=== PATIENT | female | born 1965 | race Hispanic/Latino ===

== ENCOUNTER 2016-05-28 11:24 | Outpatient (CLI) | payer BC ==
--- NOTE | 2016-05-29 10:56 | Mammography Report ---
BILATERAL DIGITAL SCREENING MAMMOGRAM with CAD: 05/28/16 11:24:00 CLINICAL: Routine screening. COMPARISON:03/18/15 FINDINGS: The breasts are heterogeneously dense, which may obscure small masses. Bilateral asymmetries require additional imaging.No architectural distortion or suspicious calcifications. IMPRESSION: Bilateral asymmetries requiring further workup. BI-RADS CATEGORY: 0 -- Additional Imaging Evaluation Required RECOMMENDATION: Recall for bilateral spot compression views and bilateral breast ultrasound if needed. ACR BI-RADS MAMMOGRAPHIC CODES: 0 = Needs additional imaging evaluation; 1 = Negative; 2 = Benign; 3 = Probably benign; 4 = Suspicious; 5 = Malignant; 6 = Known biopsy-proven malignancy COMMENT: 1. Dense breast tissue, i.e., adenosis, fibrocystic changes, etc., may obscure an underlying neoplasm. 2. Approximately 10% of cancers are not detected with mammography. 3. A negative mammography report should not delay biopsy if a clinically suspicious mass is present. COMMENT: Patient follow-up letters are generated via our [employer] application.
== END 2016-05-28 11:25 | disposition home or self-care (01) ==
LOC: SPVWC 11:24
PROVIDERS: ATTEND Obstetrics & Gynecology
DX: Z12.31 Encounter for screening mammogram for malignant neoplasm of breast (principal)
CPT/HCPCS: 77067; G0202

== ENCOUNTER 2016-06-25 12:55 | Outpatient (CLI) | payer BC ==
--- NOTE | 2016-06-26 11:06 | Ultrasound Report ---
BILATERAL DIGITAL DIAGNOSTIC MAMMOGRAM and BILATERAL BREAST ULTRASOUND: 06/25/16 12:55:00 CLINICAL: Recalled for bilateral asymmetries. COMPARISON:05/28/16 screening FINDINGS: Lateralmedial and spot compression MLO and CC views were performed. Partial effacement of bilateral asymmetries. Ultrasound of the right breast (including all four quadrants and the retroareolar area) was performed and demonstrated multiple benign cysts and no solid mass or shadowing. Cyst at 12 o'clock 3 cm from the nipple measures 6 x 3 x 7 mm. Cyst at 2 o'clock 3 cm from the nipple measures 8 x 6 x 9 mm. Cyst at 3 o'clock 4 cm from the nipple measures 9 x 6 x 8 mm and a cyst at 10 o'clock 4 cm from the nipple measures 8 x 4 x 7 mm. Ultrasound of the left breast (including all four quadrants and the retroareolar area) was performed and demonstrated multiple benign cysts and no solid mass or shadowing. A subareolar cyst at 12 o'clock measures 9 x 6 x 9 mm. Cyst at 1:30 o'clock 3 cm from the nipple measures 1.1 x 0.4 x 1.0 cm. Cyst at 6 o'clock 3 cm from the nipple measures 5 x 5 x 8 mm. Cyst at 8:30 o'clock 4 cm from the nipple measures 6 x 4 x 6 mm. Cyst at 10 o'clock 5 cm from the nipple measures 7 x 5 x 8 mm. IMPRESSION: Bilateral benign cysts. BI-RADS CATEGORY: 2 - - Benign RECOMMENDATION: Routine mammographic screening in one year. ACR BI-RADS MAMMOGRAPHIC CODES: 0 = Needs additional imaging evaluation; 1 = Negative; 2 = Benign; 3 = Probably benign; 4 = Suspicious; 5 = Malignant; 6 = Known biopsy-proven malignancy COMMENT: 1. Dense breast tissue, i.e., adenosis, fibrocystic changes, etc., may obscure an underlying neoplasm. 2. Approximately 10% of cancers are not detected with mammography. 3. A negative mammography report should not delay biopsy if a clinically suspicious mass is present. COMMENT: Patient follow-up letters are generated via our [employer] application.
== END 2016-06-25 12:56 | disposition home or self-care (01) ==
LOC: SPVWC 12:55
PROVIDERS: ATTEND Obstetrics & Gynecology
DX: N60.02 Solitary cyst of left breast (principal)
CPT/HCPCS: 76641; G0204; 77066